=== PATIENT | female | born 1980 | race Hispanic/Latino ===

== ENCOUNTER 2018-02-09 07:51 | Observation (INO) | payer MEDICAID, OTHER ==
[~2018-02-09] VITALS: Ht 157.5 cm; Wt 101.2 kg
[2018-02-09 08:32] LABS: APPEARANCE,URINE Cloudy (CLEAR); BILIRUBIN,URINE Negative (NEGATIVE); COLOR,URINE Yellow (YELLOW); GLUCOSE, URINE (UA) >=1000 mg/dL (NEGATIVE); KETONES,URINE 15 mg/dL (NEGATIVE); LEUKOCYTE ESTERASE ,URINE Negative (NEGATIVE); NITRATE,URINE Positive (NEGATIVE); OCCULT BLOOD,URINE Moderate (NEGATIVE); PH,URINE 5.5 (5.0-8.0); PROTEIN,URINE Negative (NEGATIVE)
[2018-02-09 08:41] LABS: AMPHET/METH SCREEN,URINE NEGATIVE (NEGATIVE); BARBITURATE SCREEN, URINE NEGATIVE (NEGATIVE); BENZODIAZEPINES SCREEN,URINE NEGATIVE (NEGATIVE); CANNABINOID SCREEN,URINE NEGATIVE (NEGATIVE); COCAINE SCREEN,URINE NEGATIVE (NEGATIVE); OPIATE SCREEN,URINE NEGATIVE (NEGATIVE); PHENCYCLIDINE SCREEN,URINE NEGATIVE (NEGATIVE)
[2018-02-09 08:43] LABS: BACTERIA,URINE Moderate /HPF (None Seen); RBC,URINE None Seen /HPF (0-1); SQUAMOUS EPITHELIAL CELL,UR Rare /HPF (0-2); WBC,URINE 0-1 /HPF (0-1)
[2018-02-09 09:04] LABS: HEMATOCRIT 37.2 % (36-48); MEAN CORPUSCULAR HEMOGLOBIN 31.2 pg (27.0-33.0); MEAN CORPUSCULAR HGB CONC 35.1 g/dL (32.0-36.0); MEAN CORPUSCULAR VOLUME 88.8 fL (79-99); NUCLEATED RED BLOOD CELLS 0.1 % (0.0-0.19); PLATELET COUNT (AUTO) 328 K/uL (130-400); RED BLOOD CELL COUNT(AUTO) 4.19 MIL/uL (4.00-5.50); RED CELL DISTRIBUTION WIDTH 13.3 % (11.0-15.5); WHITE BLOOD COUNT (AUTO) 11.6 K/uL (4.8-10.8)
[2018-02-09 09:25] LABS: HEMOGLOBIN A1C 7.8 % (4.0-6.0)
[2018-02-09] MEDS ORDERED: CEFTRIAXONE SODIUM 1 GM ONE (11:56)
[2018-02-09] MEDS ORDERED: ACETAMINOPHEN 325 MG TAB ONE (11:57)
[2018-02-09] MEDS ORDERED: LACTATED RINGERS 1000ML 1,000 ML IV PRN (12:20)
[2018-02-09] MEDS ORDERED: CEFTRIAXONE SODIUM 1 GM IVP ONE (12:55)
[2018-02-09] MEDS ORDERED: ACETAMINOPHEN 325 MG TAB PO ONE (13:20)
[2018-02-10 07:27] LABS: HEPATITIS Bs ANTIGEN SCREEN P Negative (Negative)
== END 2018-02-09 12:55 | disposition home or self-care (01) ==
LOC: EDH 07:51 → LDH 07:52
PROVIDERS: ADMIT Obstetrics & Gynecology; ATTEND Obstetrics & Gynecology
DX: O36.8130 Decreased fetal movements, third trimester, not applicable or unspecified (principal); Z87.891 Personal history of nicotine dependence; Z90.49 Acquired absence of other specified parts of digestive tract; Z3A.28 28 weeks gestation of pregnancy; Z79.899 Other long term (current) drug therapy
CPT/HCPCS: 36415; 76805; 80305; 81001; 82947; 83036; 85027; 86592; 86701; 86850; 86900; 86901; 87340; 87390; 99285; A4218; G0378 ×5; J0696; 96372